=== PATIENT | female | born 1990 | race African-American/Black ===

== ENCOUNTER 2022-09-21 13:05 | Observation (INO) | payer OTHER ==
[2022-09-21 13:50] VITALS: BMI 47.2
[2022-09-21 16:36] LABS: Hemoglobin 9.7 g/dL (12.0-15.5); Mean Corpuscular HGB CONC 30.6 g/dL (32.0-36.0); Mean Corpuscular Volume 68.6 fl (81.6-98.3); Mean Platelet Volume 9.6 fl (7.4-10.4); Platelet Count 396 10x3/uL (150-450); RBC Distribution Width 17.2 % (11.5-14.5); Red Blood Cell (RBC) Count 4.62 10x6/uL (3.90-5.03); White Blood Cell (WBC) Count 8.5 10x3/uL (3.5-10.5)
[2022-09-21 16:47] LABS: ALT (SGPT) 11 U/L (8-55); AST (SGOT) 17 U/L (5-34); Albumin 2.9 g/dL (3.5-5.0); Alkaline Phosphatase 98 U/L (40-110); Anion Gap 13 mmol/L (10-20); BUN (Urea Nitrogen) 7 mg/dL (7.0-18.7); Bilirubin, Total 0.5 mg/dL (0.2-1.2); Calc. Creatinine Clearance 276 mL/min (70-130); Calcium 9.1 mg/dL (7.8-10.44); Carbon Dioxide 18 mmol/L (22-29); Chloride 107 mmol/L (98-107); Estimated GFR 121; Globulin 4.3 g/dL (2.4-3.5); Glucose 116 mg/dL (70-105); Potassium 4.1 mmol/L (3.5-5.1); Protein, Total 7.2 g/dL (6.0-8.3); Sodium 134 mmol/L (136-145)
[2022-09-21 17:07] LABS: HIV (1/2) Antibody/Antigen Non-Reactive (NonReactive); HIV 1/2 INDEX 0.12 S/CO (<1.00)
[2022-09-21 17:08] LABS: Syphilis Antibody Nonreactive (Nonreactive); Syphilis Antibody Index 0.03 S/CO (<1.00 Non-Reactive)
[2022-09-21 20:00] LABS: Hemoglobin A1c 10.7 % (4.0-6.0)
[2022-09-21] MEDS ORDERED: Promethazine HCl 25 MG/ML VIAL IM PRN (20:18)
[2022-09-21] MEDS ORDERED: hydrALAZINE 20 MG/ML VIAL SLOW IVP PRN (20:18)
[2022-09-21] MEDS ORDERED: Ondansetron PF 4 MG/2 ML Vial IVP PRN (20:18)
[2022-09-21] MEDS ORDERED: Acetaminophen 500 MG TAB PO PRN (20:18)
[2022-09-21] MEDS ORDERED: Dextrose 5% in Water 1,000 ML IV PRN (20:18)
[2022-09-21] MEDS ORDERED: Dextrose 50% Abboject 50 ML SYRINGE SLOW IVP PRN (20:18)
[2022-09-21] MEDS: Lactated Ringer's 1,000 ML IV SCH ×2 (21:07→21:08)
[2022-09-21] MEDS ORDERED: Lantus 1000 UNITS/10 ML VIAL SC SCH (22:00)
[2022-09-21] MEDS: Betamet Acet/Betamet Na Ph 30 MG/5 ML VIAL ONE (22:21)
[2022-09-21] MEDS: Betamet Acet/Betamet Na Ph 30 MG/5 ML VIAL IM SCH (22:21)
[2022-09-22] MEDS: Betamet Acet/Betamet Na Ph 30 MG/5 ML VIAL ONE (03:58)
[2022-09-22] MEDS: HumaLOG 300 UNITS/3 ML VIAL SC PRN ×2 (05:44→09:52)
[2022-09-22] MEDS: HumaLOG 300 UNITS/3 ML VIAL SC SCH ×3 (07:54→16:51)
[2022-09-22] MEDS ORDERED: Lantus 1000 UNITS/10 ML VIAL SC SCH (21:00)
[2022-09-22] MEDS: Betamet Acet/Betamet Na Ph 30 MG/5 ML VIAL IM SCH (22:00)
[2022-09-23 08:06] LABS: SARS-CoV-2 NAA Rapid Test Not Detected (NotDetected)
[2022-09-23] MEDS: HumaLOG 300 UNITS/3 ML VIAL SC SCH ×2 (08:54→16:57)
[2022-09-23] MEDS: HumaLOG 300 UNITS/3 ML VIAL SC PRN ×2 (11:45→15:13)
[2022-09-23] MEDS: Lantus 1000 UNITS/10 ML VIAL SC SCH (21:26)
[2022-09-24] MEDS: HumaLOG 300 UNITS/3 ML VIAL SC SCH ×3 (07:55→17:07)
[2022-09-24] MEDS: Lantus 1000 UNITS/10 ML VIAL SC SCH (22:37)
[2022-09-25] MEDS: HumaLOG 300 UNITS/3 ML VIAL SC SCH ×4 (07:25→23:15)
[2022-09-25] MEDS: Lantus 1000 UNITS/10 ML VIAL SC SCH (21:12)
[2022-09-25] MEDS: Lactated Ringer's 1,000 ML IV SCH (23:15)
[2022-09-26] MEDS: HumaLOG 300 UNITS/3 ML VIAL SC SCH ×3 (07:39→17:25)
== END 2022-09-26 20:30 | disposition home or self-care (01) ==
LOC: CSHLD/OP 13:05 → INTOOBSV 18:28 → CSHLD 18:28
PROVIDERS: ADMIT Family Medicine; ATTEND Family Medicine
DX: O36.8331 Maternal care for abnormalities of the fetal heart rate or rhythm, third trimester, fetus 1 (principal); O99.213 Obesity complicating pregnancy, third trimester; E66.01 Morbid (severe) obesity due to excess calories; O24.419 Gestational diabetes mellitus in pregnancy, unspecified control; Z3A.32 32 weeks gestation of pregnancy; Z79.899 Other long term (current) drug therapy
CPT/HCPCS: 36415; 36416; 76815; 76819; 80053; 82985; 83036; 85027; 86780; 87389; 96372; 99285; G0378; J0702; J1815; J7120; U0002

== ENCOUNTER 2022-09-28 12:11 | Day surgery (SDC) | payer OTHER | END 2022-09-28 17:23 | disposition home or self-care (01) | LOC: CSHLD/OP 12:11 | PROVIDERS: ATTEND Family Medicine | DX: O24.119 Pre-existing type 2 diabetes mellitus, in pregnancy, unspecified trimester (principal); E11.8 Type 2 diabetes mellitus with unspecified complications; Z3A.00 Weeks of gestation of pregnancy not specified | CPT/HCPCS: 59025; 76819; 99281 ==

== ENCOUNTER 2022-10-03 15:29 | Observation (INO) | payer OTHER ==
[2022-10-03] MEDS ORDERED: Promethazine HCl 25 MG/ML VIAL IM PRN (20:46)
[2022-10-03] MEDS ORDERED: Dextrose 5% in Water 1,000 ML IV PRN (20:46)
[2022-10-03] MEDS ORDERED: hydrALAZINE 20 MG/ML VIAL SLOW IVP PRN (20:46)
[2022-10-03] MEDS ORDERED: Dextrose 50% Abboject 50 ML SYRINGE SLOW IVP PRN (20:46)
[2022-10-03] MEDS ORDERED: HumaLOG 300 UNITS/3 ML VIAL SC PRN (20:46)
[2022-10-03] MEDS ORDERED: Lantus 1000 UNITS/10 ML VIAL SC SCH (21:00)
[2022-10-04 06:10] VITALS: BMI 50.0
[2022-10-04] MEDS ORDERED: HumaLOG 300 UNITS/3 ML VIAL SC SCH (20:00)
== END 2022-10-04 09:06 | disposition home health service (06) ==
LOC: CSHLD/OP 15:29 → CSHLD 21:09 → INTOOBSV 21:09
PROVIDERS: ADMIT Family Medicine; ATTEND Family Medicine
DX: Z36.83 Encounter for fetal screening for congenital cardiac abnormalities (principal); O24.419 Gestational diabetes mellitus in pregnancy, unspecified control
CPT/HCPCS: 36416; 59025; 76819; 99285; J1815

== ENCOUNTER 2022-10-07 14:16 | Day surgery (SDC) | payer OTHER ==
[2022-10-07 17:07] VITALS: BMI 47.7
== END 2022-10-07 16:45 | disposition home or self-care (01) ==
LOC: CSHLD/OP 14:16
PROVIDERS: ATTEND Family Medicine
DX: O24.419 Gestational diabetes mellitus in pregnancy, unspecified control (principal); Z3A.34 34 weeks gestation of pregnancy
CPT/HCPCS: 59025; 76819; 99282

== ENCOUNTER 2022-10-14 17:52 | Day surgery (SDC) | payer OTHER ==
[2022-10-14 18:25] VITALS: BMI 47.9
[2022-10-14] MEDS ORDERED: HumaLOG 300 UNITS/3 ML VIAL SC SCH (22:15)
== END 2022-10-14 22:15 | disposition home or self-care (01) ==
LOC: CSHLD/OP 17:52
PROVIDERS: ATTEND Family Medicine
DX: O24.919 Unspecified diabetes mellitus in pregnancy, unspecified trimester (principal); Z3A.00 Weeks of gestation of pregnancy not specified
CPT/HCPCS: 36416; 59025; 76815; 76819; 96372; 99282; J1815

== ENCOUNTER 2022-10-18 16:55 | Day surgery (SDC) | payer OTHER | END 2022-10-18 23:43 | disposition home or self-care (01) | LOC: CSHLD/OP 16:55 | PROVIDERS: ATTEND Family Medicine | DX: O24.113 Pre-existing type 2 diabetes mellitus, in pregnancy, third trimester (principal); E11.9 Type 2 diabetes mellitus without complications; Z36.89 Encounter for other specified antenatal screening; Z3A.37 37 weeks gestation of pregnancy | CPT/HCPCS: 59025; 76815; 76819; 99285 ==

== ENCOUNTER 2022-10-22 12:54 | Inpatient (IN) | payer OTHER ==
[~2022-10-22 12:54] MED LIST: Iopamidol 370 76% 100 ML VIAL ONE
[2022-10-22] MEDS ORDERED: Labetalol HCl 100 MG/20 ML VIAL ONE (13:11)
[2022-10-22] MEDS ORDERED: Magnesium 2 GM/50 ML BAG (IN WATER) ONE (13:12)
[2022-10-22 14:12] LABS: #Eosinphils 0.1 10x3/uL (0.0-0.5); #Monocytes 0.4 10x3/uL (0.0-1.1); %Basophils 0.4 % (0.0-2.0); %Eosinophils 1.7 % (0.0-6.0); %Lymphocytes 8.1 % (18.0-47.0); %Monocytes 6.1 % (0.0-10.0); %Neutrophils 83.1 % (40.0-75.0); Hemoglobin 8.1 g/dL (12.0-15.5); Mean Corpuscular HGB CONC 29.7 g/dL (32.0-36.0); Mean Corpuscular Hemoglobin 20.3 pg (27.0-33.0); Mean Corpuscular Volume 68.4 fl (81.6-98.3); Mean Platelet Volume 9.6 fl (7.4-10.4); Platelet Count 335 10x3/uL (150-450); RBC Distribution Width 17.2 % (11.5-14.5); Red Blood Cell (RBC) Count 3.99 10x6/uL (3.90-5.03); White Blood Cell (WBC) Count 7.3 10x3/uL (3.5-10.5)
[2022-10-22 14:18] LABS: SARS-CoV-2 NAA Rapid Test DETECTED (NotDetected)
[2022-10-22 14:22] LABS: ALT (SGPT) 8 U/L (8-55); AST (SGOT) 11 U/L (5-34); Albumin 2.6 g/dL (3.5-5.0); Alkaline Phosphatase 96 U/L (40-110); Anion Gap 12 mmol/L (10-20); BUN (Urea Nitrogen) 6 mg/dL (7.0-18.7); Bilirubin, Total 0.7 mg/dL (0.2-1.2); Calc. Creatinine Clearance 0 mL/min (70-130); Calcium 8.5 mg/dL (7.8-10.44); Carbon Dioxide 17 mmol/L (22-29); Chloride 106 mmol/L (98-107); Estimated GFR 120; Globulin 3.8 g/dL (2.4-3.5); Glucose 176 mg/dL (70-105); Magnesium 1.5 mg/dL (1.6-2.6); Protein, Total 6.4 g/dL (6.0-8.3); Sodium 131 mmol/L (136-145)
[2022-10-22 15:00] LABS: Anisocytosis SLIGHT = 6-15 cells (100X) (0-5/hpf); Hypochromia SLIGHT = 6-15 cells (100X) (0-5/hpf); Microcytosis SLIGHT = 6-15 cells (100X) (0-5/hpf); Platelet Morphology Comment Appears Adequate
[2022-10-22] MEDS ORDERED: Acetaminophen 500 MG TAB ONE (15:18)
[2022-10-22 15:42] LABS: Bilirubin Neg (Negative); Blood, Urine Negative (Negative); Clarity Clear (Clear); Glucose, Urine (Dipstick) Normal (Negative); Ketone, Urine Negative (Negative); Leukocyte 100 (Negative); Nitrite Negative (Negative); Protein, Urine (Dipstick) Negative (Neg-Trace); Urobilinogen Normal mg/dL (Less than 2)
[2022-10-22 15:50] LABS: Bacteria/HPF 1+ HPF (None Seen); RBC/HPF 0-3 HPF (0-3); Renal Epithelial 0-3 HPF (None Seen); Squamous Epithelial 0-3 HPF (0-3); WBC/HPF 0-3 HPF (0-3)
[2022-10-22 16:08] VITALS: BMI 47.1
[2022-10-22] MEDS ORDERED: hydrALAZINE 20 MG/ML VIAL ONE (16:13)
[2022-10-22] MEDS ORDERED: Magnesium Sulfate 20 gm/500 ml 20 GM/500 ML BAG ONE (16:13)
[2022-10-22] MEDS ORDERED: Famotidine/PF 20 mg/2ml Vial SLOW IVP PRN (16:25)
[2022-10-22] MEDS ORDERED: Lorazepam 2 MG/ML VIAL SLOW IVP PRN (16:25)
[2022-10-22] MEDS ORDERED: Promethazine HCl 25 MG/ML VIAL IM PRN ×2 (16:25→19:32)
[2022-10-22] MEDS ORDERED: Calcium Gluc 4.6 MEQ/10 ML (100 MG/ML) SLOW IVP PRN (16:25)
[2022-10-22] MEDS ORDERED: Acetaminophen 500 MG TAB PO PRN (16:25)
[2022-10-22] MEDS ORDERED: Labetalol HCl 100 MG/20 ML VIAL SLOW IVP PRN (16:25)
[2022-10-22] MEDS ORDERED: Ondansetron PF 4 MG/2 ML Vial IVP PRN ×2 (16:25→19:32)
[2022-10-22] MEDS ORDERED: hydrALAZINE 20 MG/ML VIAL SLOW IVP PRN ×2 (16:25)
[2022-10-22] MEDS ORDERED: Bicitra 30 ML UDCUP PO PRN (16:25)
[2022-10-22] MEDS ORDERED: CEFAZOLIN 2 GM in Sodium Chloride 0.9% 100 ML IVPB SCH (16:30)
[2022-10-22 17:19] LABS: Protein, Urine Random Quant Less than 10 mg/dL (1-14)
[2022-10-22] MEDS ORDERED: Morphine PF 10 MG/10 ML VIAL ONE (17:34)
[2022-10-22] MEDS ORDERED: ePHEDrine Sulfate 50 MG/10 ML VIAL ONE (17:34)
[2022-10-22] MEDS ORDERED: Fentanyl 100 MCG/2 ML VIAL ONE (17:34)
[2022-10-22] MEDS ORDERED: PHENYLEPHRINE-NS 100 MCG/ML 10 ML SYRINGE ONE (17:35)
[2022-10-22] MEDS ORDERED: Oxytocin 10 UNITS/ML VIAL ONE (17:35)
[2022-10-22] MEDS ORDERED: Dexamethasone 4 mg/ml Vial ONE (17:35)
[2022-10-22] MEDS ORDERED: Ondansetron PF 4 MG/2 ML Vial ONE (17:35)
[2022-10-22] MEDS ORDERED: CEFAZOLIN 3 GM in Sodium Chloride 0.9% 100 ML IVPB SCH (18:00)
[2022-10-22] MEDS ORDERED: Lidocaine 1% PF 5 ML VIAL ONE (18:19)
[2022-10-22] MEDS ORDERED: Dextrose 5% in Water 1,000 ML IV PRN (19:21)
[2022-10-22] MEDS ORDERED: Dextrose 50% Abboject 50 ML SYRINGE SLOW IVP PRN (19:21)
[2022-10-22] MEDS ORDERED: HumaLOG 300 UNITS/3 ML VIAL SC PRN (19:21)
[2022-10-22 19:23] LABS: RapidComm Collect By CBN; pH (Cord, venous) 7.264 (7.250-7.350)
[2022-10-22] MEDS ORDERED: L&D-Morphine 4 MG/ML VIAL SLOW IVP PRN (19:32)
[2022-10-22] MEDS ORDERED: Ondansetron HCl/PF 4 MG/2 ML Vial IVP PRN (19:32)
[2022-10-22] MEDS ORDERED: Fentanyl 100 MCG/2 ML VIAL SLOW IVP PRN (19:32)
[2022-10-22] MEDS ORDERED: Meperidine HCl/PF 25 MG/ML VIAL SLOW IVP PRN (19:32)
[2022-10-22] MEDS ORDERED: Ketorolac Tromethamine 30 MG/ML VIAL IVP PRN (19:32)
[2022-10-22] MEDS ORDERED: Naloxone HCl 0.4 mg/ml Vial IVP PRN ×2 (19:32)
[2022-10-22] MEDS ORDERED: diphenhydrAMINE 50 MG/ML VIAL IVP PRN (19:32)
[2022-10-22] MEDS ORDERED: Naloxone HCl 0.4 mg/ml Vial IV PRN (19:32)
[2022-10-22] MEDS ORDERED: Promethazine HCl 25 MG SUPP PR PRN (19:32)
[2022-10-22] MEDS ORDERED: Moisturizing Cream (Eucerin) 113 GM JAR TOP PRN (19:32)
[2022-10-22] MEDS ORDERED: Communication Order-Pharmacy FS SCH (19:45)
[2022-10-22] MEDS ORDERED: Ketorolac Tromethamine 30 MG/ML VIAL IVP SCH (19:45)
[2022-10-22 20:46] LABS: Hep B Surf Ag Non-Reactive S/CO (NonReactive); Syphilis Antibody Nonreactive (Nonreactive); Syphilis Antibody Index 0.03 S/CO (<1.00 Non-Reactive)
[2022-10-22 22:55] LABS: HBSAg Index 0.12 S/CO (0-0.99); HIV (1/2) Antibody/Antigen Non-Reactive (NonReactive); HIV 1/2 INDEX 0.05 S/CO (<1.00); Hep B Surf Ag Non-Reactive S/CO (NonReactive)
[2022-10-23] MEDS: Lactated Ringer's 1,000 ML IV SCH ×4 (00:36→22:16)
[2022-10-23] MEDS: Magnesium Sulfate 20 gm/500 ml 20 GM/500 ML BAG IVPB SCH ×2 (00:45→13:02)
[2022-10-23] MEDS: Lantus 1000 UNITS/10 ML VIAL SC SCH ×2 (00:46→21:58)
[2022-10-23 04:06] LABS: Magnesium 4.2 mg/dL (1.6-2.6)
[2022-10-23] MEDS: HumaLOG 300 UNITS/3 ML VIAL SC PRN ×2 (11:58→17:13)
[2022-10-23 13:41] LABS: Hep C IgG Ab Non-Reactive (NonReactive); Hep C Index 0.07 S/CO (0-0.79)
[2022-10-23] MEDS ORDERED: NS w/ Oxytocin 30 units 500 ML IV SCH (19:34)
[2022-10-23] MEDS ORDERED: Ondansetron PF 4 MG/2 ML Vial IVP PRN (19:34)
[2022-10-23] MEDS ORDERED: Boostrix 0.5 ML (Tdap) VIAL (>/=7 yrs of age) IM ONE (19:34)
[2022-10-23] MEDS ORDERED: Promethazine HCl 25 MG/ML VIAL IM PRN (19:34)
[2022-10-23] MEDS ORDERED: Misoprostol 200 MCG TAB PR PRN (19:34)
[2022-10-23] MEDS ORDERED: hydrALAZINE 20 MG/ML VIAL SLOW IVP PRN (19:34)
[2022-10-23] MEDS ORDERED: Lanolin Ointment 7 GM TUBE TOP PRN (19:34)
[2022-10-23] MEDS ORDERED: Simethicone Chewable 80 MG TAB PO PRN (19:34)
[2022-10-23] MEDS: HYDROcodone/Acetaminophen 5/325 mg Tablet PO PRN (19:49)
[2022-10-23] MEDS: Prenatal Vitamin 1 TAB PO SCH (20:52)
[2022-10-23] MEDS: Ibuprofen 800 MG TAB PO SCH (21:58)
[2022-10-23] MEDS: Ferrous Sulfate 325 MG TAB PO SCH (21:59)
[2022-10-24 04:08] LABS: Hemoglobin 8.7 g/dL (12.0-15.5); Mean Corpuscular HGB CONC 30.3 g/dL (32.0-36.0); Mean Corpuscular Hemoglobin 20.6 pg (27.0-33.0); Mean Corpuscular Volume 67.8 fl (81.6-98.3); Mean Platelet Volume 9.7 fl (7.4-10.4); Platelet Count 374 10x3/uL (150-450); RBC Distribution Width 17.2 % (11.5-14.5); Red Blood Cell (RBC) Count 4.23 10x6/uL (3.90-5.03); White Blood Cell (WBC) Count 8.7 10x3/uL (3.5-10.5)
[2022-10-24] MEDS: Lactated Ringer's 1,000 ML IV SCH ×2 (05:38→09:36)
[2022-10-24] MEDS: HYDROcodone/Acetaminophen 5/325 mg Tablet PO PRN ×2 (06:02→12:29)
[2022-10-24] MEDS: Ibuprofen 800 MG TAB PO SCH ×3 (06:03→21:27)
[2022-10-24] MEDS: Prenatal Vitamin 1 TAB PO SCH (09:04)
[2022-10-24] MEDS: Ferrous Sulfate 325 MG TAB PO SCH ×2 (09:04→21:27)
[2022-10-24] MEDS: Lantus 1000 UNITS/10 ML VIAL SC SCH (21:45)
[2022-10-25] MEDS: HYDROcodone/Acetaminophen 5/325 mg Tablet PO PRN ×2 (00:41→09:52)
[2022-10-25] MEDS: Ibuprofen 800 MG TAB PO SCH ×2 (05:42→13:53)
[2022-10-25] MEDS: Prenatal Vitamin 1 TAB PO SCH (09:45)
[2022-10-25] MEDS: Ferrous Sulfate 325 MG TAB PO SCH (09:45)
[2022-10-25 11:33] VITALS: TEMP 98.7
[2022-10-25] MEDS: Lactated Ringer's 1,000 ML IV SCH ×2 (11:35→11:36)
[2022-10-25 11:50] VITALS: BP 137/87
== END 2022-10-25 14:52 | disposition home or self-care (01) | DRG 786 ==
LOC: CSHERS 12:54 → CSHLD/OP 16:04 → CSHLD 17:04 → CSHANTE 10-23 20:16
PROVIDERS: ADMIT Family Medicine; ATTEND Family Medicine
PROC: 10D00Z1 Extraction of Products of Conception, Low, Open Approach (ICD-10-PCS; principal; 2022-10-22)
PROC: 8E0ZXY6 Isolation (ICD-10-PCS; 2022-10-22)
DX: O98.52 Other viral diseases complicating childbirth (principal); O24.12 Pre-existing type 2 diabetes mellitus, in childbirth; U07.1 COVID-19; Z3A.36 36 weeks gestation of pregnancy; Z37.0 Single live birth; O34.211 Maternal care for low transverse scar from previous cesarean delivery; Z79.4 Long term (current) use of insulin; O99.214 Obesity complicating childbirth; E11.9 Type 2 diabetes mellitus without complications; O14.14 Severe pre-eclampsia complicating childbirth; D64.9 Anemia, unspecified; O99.02 Anemia complicating childbirth; E66.01 Morbid (severe) obesity due to excess calories
CPT/HCPCS: 36415; 36416; 36430; 51702; 59025; 71275; 76819; 80053; 81003; 81015; 82570; 82805; 83605; 83735; 84156; 84484; 85025; 85027; 86140; 86780; 86850; 86900; 86901; 87077; 87086; 87340; 93005; 96360; 99282; 99285; J0360; J1100; J1815; J1885; J2274; J2405; J2590; J3010; J3475; Q9967